=== PATIENT | male | born 1985 | race Caucasian/White ===

== ENCOUNTER 2017-02-04 17:31 | Emergency (ER) | payer OTHER ==
[~2017-02-04] VITALS: Ht 167.6 cm; Wt 81.3 kg
[~2017-02-04 17:31] MED LIST: ABIL1TAB11 PO; FLUO10CA8 PO; PROZ40CA PO; TRAZ50TA11 PO; VIST25CA PO; VIST50CA PO
[2017-02-04] MEDS ORDERED: TEMA30CA (17:42)
[2017-02-04] MEDS ORDERED: NAPR500T PO (19:54)
[2017-02-04] MEDS ORDERED: REGL10TA6 PO (19:54)
[2017-02-04] MEDS ORDERED: CYCL5TAB PO (19:54)
[2017-02-04 20:06] VITALS: BP 170/116
== END 2017-02-04 20:18 | disposition home or self-care (01) ==
LOC: M ED 17:31
DX: R51 Headache (principal); F41.9 Anxiety disorder, unspecified; F32.9 Major depressive disorder, single episode, unspecified; F17.210 Nicotine dependence, cigarettes, uncomplicated